=== PATIENT | female | born 1980 | race Caucasian/White ===

== ENCOUNTER 2020-05-24 19:04 | Emergency (ER) | payer MEDICAID ==
--- NOTE | 2020-05-24 19:24 | EDM.PDOC ---
ED HPI GENERAL MEDICAL PROBLEM - General Chief Complaint: Diabetic Complaint Stated Complaint: "Low blood sugar" Time Seen by Provider: 05/24/20 19:04 Source of Information: Reports: Patient History Limitations: Reports: No Limitations - History of Present Illness INITIAL COMMENTS - FREE TEXT/NARRATIVE: This patient is a 39 year old female that arrives private vehicle with daughter. Daughter reports the patient went out last night drinking and drank a lot. She reports that the patient today has just been drinking Mt Dew. Daughter reports that she got to the house today about 3pm, then her mother was fine, then she went to take a nap. Daughter reports the patient came out of the bedroom about 6ish say the patient was not acting right. The daughter reports the pat ient refused to eat or drink. She reports the patient was very drowsy. Daughter reports the patient BS was 14 at home, they drove straight here. The daughter reports that her mother on several occasions gets low blood sugar and this happens often. The patient arrives and is eye opening, but nonverbal. I asked her to drink [place] juice, she initially just bit the straw. Accucheck here in ER is "Low". Patient placed on hall monitor, IV placed. 1/2 Amp D5W given. Patient then opens mouth, and drinks the entire [place] Juice. BS now 123. Onset: Today Onset Date: 05/24/20 Severity: Moderate Improves with: Reports: None Worsens with: Reports: None Associated Symptoms: Reports: Confusion, Loss of Appetite. Denies: Chest Pain, Cough, cough w sputum, Diaphoresis, Fever/Chills, Headaches, Malaise, Nausea/Vomiting, Rash, Seizure, Shortness of Breath, Syncope, Weakness - Related Data Allergies Allergy/AdvReac Type Severity Reaction Status Date / Time No Known Allergies Allergy Verified 05/24/20 19:32 Home Meds: Home Meds ALPRAZolam [Xanax] 0.5 mg PO QID PRN 05/24/20 [History] Furosemide [Lasix] 40 mg PO DAILY 05/24/20 [History] Insulin Detemir [Levemir] 18 units BEDTIME 05/24/20 [History] Insulin Lispro [HumaLOG] 1 units ASDIRECTED 05/24/20 [History] Topiramate [Topamax] 100 mg PO DAILY 05/24/20 [History] buPROPion HCL [Wellbutrin Xl] 300 mg PO DAILY 05/24/20 [History] ED ROS GENERAL - Review of Systems Review Of Systems: See Below Constitutional: Reports: Fatigue HEENT: Reports: No Symptoms Respiratory: Reports: No Symptoms Cardiovascular: Reports: No Symptoms Endocrine: Reports: Low Glucose GI/Abdominal: Reports: No Symptoms : Reports: No Symptoms Musculoskeletal: Reports: No Symptoms Skin: Reports: No Symptoms Neurological: Reports: Confusion, Other (decreased mental status) Psychiatric: Reports: No Symptoms Hematologic/Lymphatic: Reports: No Symptoms Immunologic: Reports: No Symptoms ED EXAM GENERAL NO PERIP PULSE - Physical Exam Exam: See Below Exam Limited By: Altered Mental Status (Prior to sugar being corrected) General Appearance: Other (nonverbal, eye opening and following. ) Eye Exam: Bilateral Eye: Normal Inspection, PERRL Ears: Normal External Exam, Normal Canal, Hearing Grossly Normal, Normal TMs Nose: Normal Inspection, Normal Mucosa, No Blood Throat/Mouth: Normal Inspection, Normal Lips, Normal Teeth, Normal Gums, Normal Oropharynx, Normal Voice, No Airway Compromise Head: Atraumatic, Normocephalic Neck: Normal Inspection, Supple, Non-Tender, Full Range of Motion Respiratory/Chest: No Respiratory Distress, Lungs Clear, Normal Breath Sounds, No Accessory Muscle Use Cardiovascular: Normal Peripheral Pulses, Regular Rate, Rhythm, No Edema, No Gallop, No JVD, No Murmur, No Rub GI/Abdominal: Soft, Non-Tender (Female) Exam: Deferred Rectal (Female) Exam: Deferred Back Exam: Normal Inspection Extremities: Normal Inspection, No Pedal Edema, Normal Capillary Refill Neurological: Confused, Other (nonverbal. GCS: 10 upon arrival. Post D50W, GCS 15. ) Psychiatric: Normal Affect, Normal Mood Skin Exam: Warm, Intact, Normal Color, No Rash Lymphatic: No Adenopathy Course - Vital Signs Last Recorded V/S: Last Vital Signs Temp 96.5 F L 05/24/20 19:17 Pulse 86 05/24/20 19:17 Resp 20 05/24/20 19:17 BP 96/56 L 05/24/20 19:17 Pulse Ox 99 05/24/20 19:17 - Orders/Labs/Meds Labs: Laboratory Tests 05/24/20 05/24/20 05/24/20 Range/Units 19:28 19:28 21:44 WBC 6.6 (5.0-10.0) 10^3/uL RBC 4.11 (4.00-5.50) 10^6/uL Hgb 12.1 (12.0-16.0) g/dL Hct 37.7 (37.0-47.0) % MCV 91.7 (82.0-94.0) fL MCH 29.4 (27.0-32.0) pg MCHC 32.1 L (33.0-38.0) g/dL RDW Coeff of Susannah 13.6 (11.0-15.0) % Plt Count 392 (150-400) 10^3/uL Neut % (Auto) 43.9 (35-85) % Lymph % (Auto) 44.3 (10-55) % [place] % (Auto) 8.9 (0-16) % Eos % (Auto) 2.3 (0-5) % Baso % (Auto) 0.6 (0-3) % Neut # (Auto) 2.92 (1.80-7.00) 10^3/uL Lymph # (Auto) 2.94 (1.00-4.80) 10^3/uL [place] # (Auto) 0.59 (0.00-0.80) 10^3/uL Eos # (Auto) 0.15 (0.00-0.45) 10^3/uL Baso # (Auto) 0.04 10^3/uL Sodium 146 H (136-145) mEq/L Potassium 4.1 (3.5-5.0) mEq/L Chloride 111 H (98-106) mEq/L Carbon Dioxide 24 (21-32) mmol/L BUN 12 (7-18) mg/dL Creatinine 0.9 (0.6-1.0) mg/dL Est Cr Clr Drug Dosing 78.56 mL/min Estimated GFR (MDRD) > 60 (>=60) mL/min Glucose 87 (75-99) mg/dL POC Glucose 124 H (75-105) mg/dl Calcium 8.7 (8.4-10.1) mg/dL Total Bilirubin 0.3 (0.0-1.0) mg/dL AST 14 L (15-37) U/L ALT 24 (12-78) U/L Alkaline Phosphatase 73 (46-116) U/L Total Protein 6.7 (6.4-8.2) g/dL Albumin 3.4 (3.4-5.0) g/dL Meds: Medications Discontinued Medications Generic Name Dose Route Start Last Admin Trade Name Minal PRN Reason Stop Dose Admin Dextrose/Water 25 ml 05/24/20 19:34 05/24/20 19:05 Dextrose 50% In Water IVPUSH 05/24/20 19:35 25 ml ONETIME ONE Administration - Re-Assessments/Exams Free Text/Narrative Re-Assessment/Exam: 05/24/20 19:37 BS is now 68. She is currently eating peanut butter and toast. Gave another orange juice, cookies, and milk. 05/24/202139 Patient BS 124. She is awake, alert, oriented, sitting up in bed talking and eating. She is ready to go home. Will discharge patient. Departure - Departure Time of Disposition: 22:00 Disposition: Home, Self-Care 01 Condition: Fair Clinical Impression: Hypoglycemia - Discharge Information *PRESCRIPTION DRUG MONITORING PROGRAM REVIEWED*: Not Applicable *COPY OF PRESCRIPTION DRUG MONITORING REPORT IN PATIENT DENNYS: Not Applicable Instructions: Hypoglycemia Forms: ED Department Discharge Additional Instructions: Followup with your primary care provider Return to the ER for worsening of condition or any emergent concerns DO NOT TAKE YOUR INSULIN TONIGHT Go home, eat a good meal. Drinking Mt Dew only raises sugar quickly, then it drops quickly. Eat things like Peanut Butter, Meals, Milk If sugar drops again, drink orange juice or sugary drink to bring up quickly, then eat something as listed above Sepsis Event Note (ED) - Evaluation Sepsis Screening Result: No Definite Risk - Assessment/Plan Plan: PLEASE SEE RN NOTE FOR PFSH
[2020-05-24] MEDS ORDERED: 50% Dextrose in Water 50 ML Syringe IVPUSH ONE (19:34)
[2020-05-24 19:47] LABS: CHLORIDE,CL 111 mEq/L (98-106); SODIUM,NA 146 mEq/L (136-145)
== END 2020-05-24 22:00 | disposition home or self-care (01) ==
LOC: CC.ED 19:04
DX: E16.2 Hypoglycemia, unspecified (principal)
CPT/HCPCS: 36415; 80053; 82962; 85025; 96374; 99283-25